=== PATIENT | female | born 1940 | race Hispanic/Latino ===

== ENCOUNTER 2017-05-01 10:06 | Outpatient (CLI) | payer MEDICARE ==
--- NOTE | 2017-05-01 12:39 | XRay Report ---
XRAY LEFT HAND THREE VIEWS: 05/01/17 10:06:00 CLINICAL: Left hand pain. FINDINGS: No fracture or dislocation. Severe osteoarthritis at the basal joint of the thumb, the IP joint of the thumb and the PIP joint of the middle finger. Medial subluxation of the middle phalanx relative to the proximal phalanx of the middle finger. Less severe osteoarthritis at the remaining DIP joints. Slight subluxation at the PIP joint of the fifth finger. The carpal bones are intact. The distal radius and ulna are normal. Minimal radiocarpal joint arthritis. Normal soft tissues. IMPRESSION: Osteoarthritis.
== END 2017-05-01 10:07 | disposition home or self-care (01) ==
LOC: SPVIMAG 10:06
PROVIDERS: ATTEND Orthopaedic Surgery Sports Medicine
DX: M19.042 Primary osteoarthritis, left hand (principal); M18.9 Osteoarthritis of first carpometacarpal joint, unspecified